=== PATIENT | female | born 1955 | race Asian ===

== ENCOUNTER → 2017-03-11 | Outpatient (CLI) | payer OTHER, MEDICAID ==
[~2017-03-11] MED LIST: ASPI-1182 PO; ATOR20TA65 PO; BACL10TA PO; CLOP75TA32 PO; COLC0.6T68 PO; FEBU40T PO; FURO40TA5 PO; INSLAN SQ; INSU100V SQ; LEVO50TA11 PO; LORA10TA7 PO; METO-416 PO; NITR0.4T SL; PREG50 PO
== END | disposition home or self-care (01) ==
LOC: RADPV 10:29
PROVIDERS: ATTEND Internal Medicine Nephrology
DX: M79.89 Other specified soft tissue disorders (principal); I10 Essential (primary) hypertension; E11.9 Type 2 diabetes mellitus without complications
CPT/HCPCS: 93970